=== PATIENT | male | born 1975 | race Caucasian/White ===

== ENCOUNTER → 2017-03-26 | Outpatient (CLI) | payer OTHER ==
--- NOTE | 2017-03-27 06:20 | PAP/PSG TECHNICIAN REPORT ---
[facility] Tool Room Attendant Polysomnogram Report Study name: None Report date: 03/27/2017 Study date: 03/26/2017 Referring Physician: Hiral Coreas PA-C Name: ADAN ORO Interpreting Physician: Brian Ortiz D.O. Date of : 1975 Tool Room Attendant: Hiren Gracia RPSGT. Sex: Male Age: 41 StudyType: PSG Weight: 177 lbs 38.5 cm Height: 41 years, Height 6' 0" Neck Circum: BMI: 24 Medications: VITAMIN D3, CLOMIPRAMINE HCL 75 MG, DULOXETINE 60 MG, REXULTI 2 MG Patient History PATIENT HAS HISTORY OF HYPERSOMNOLENCE, WITNESSED APNEA, INSOMNIA AND VIVID DREAMS. ALSO HAS HISTORY OF OCD AND DEPRESSION. HE IS HERE TODAY FOR AN EVALUATION OF LEONARD. ESS = 17 RM 8 Parameters Monitored NPSG: E1-M2, E2-M1, Fp1-M2, Fp2-M1, F3-M2, F4-M2, F4-M1, C3-M2, C4-M2, C4-M1, O1-M2, O2-M2, O2-M1, T3-M2, T4-M1, P3-M2, P4-M1, CHIN1, CHIN2, HR, EKG, Legs, PFLOW, SNOR, FLOW, CFLOW, Tidal Volume, THOR, ABDO, SpO2, PLTH, CPRESS, ETCO2 Wave, ETCO2, pH Sleep Architecture Sleep Stages Time at Lights Off 10:41:14 PM STAGES Time (min.) TST (%) Time at Lights On 5:40:14 AM Wake 200.5 -- Total Recording Time (TRT) 419.50 min. N1 33.5 15 Total Sleep Period (TSP) 357.5 min. N2 178.5 82 Total Sleep Time (TST) 218.5min. N3 6.5 3 Awake Time 201.0 min. REM 0.0 0 Wake after Sleep Onset 148.5 min. Sleep Efficiency (SE) 52 % Sleep Onset Latency (CANDELARIA) 52.0 min. Number of Stage 1 Shifts None Awakenings 42 Stage Changes 118 Number of REM periods N/A REM 0.0 0 REM Latency NONE min. NREM 218.5 100 Body Position Analysis Supine Right Left Side Prone Vertical Total Sleep Time (min.) 177.6 52.5 93.0 145.50 0.0 0.0 Total Sleep Time (%) 33% 24% 43% 67 0% N/A% Total Sleep Time REM (min.) 0.0 0.0 0.0 None 0.0 0.0 Total Sleep Time NREM (min.) 73.0 52.5 93.0 None 0.0 0.0 Intermittent Wake (min.) 104.6 44.3 51.6 None 0.0 0.0 Total Sleep Period (%) 35% None None None None None Arousals Myoclonus (PLM) * Events Count Index Events Count Index Spontaneous 48 13 Events Awake (PLMW) 151 45.2 Respiratory 6 1.9 Events Asleep w/ Arousal (PLMA) 9 2.5 PLM 7 2 Events Asleep w/o Arousal (PLMS) 186 51.1 Snoring 2 1 Total Asleep 195 53.5 Total 62 17 Total 346 50 Respiratory Analysis * CA OA MA CH H RERA Total Count 0 0 0 0 4 6 4 Index 0.0 0.0 0.0 0 1.1 2 2.7 Mean Duration 0.0 0.0 0.0 0.00 32.8 17.9 23.9 Longest Duration 0.0 0.0 0.0 0.00 0.0 23.6 42.2 Respiratory Event Summary Total Supine ~Supine Right Left Prone REM NREM Apneas Count 0 0 0 0 0 N/A N/A 0 Index 0.0 0 0 0.0 0.0 N/A N/A 0 Hypopneas (4% Desat) Count 4 4 0 0 0 N/A N/A 4 Index 1.1 3.3 0 0.0 0.0 N/A N/A 1.1 Apneas & All Hypopneas Count 4 4 0 0 0 N/A N/A 4 Index 1.1 3 0 0 0 N/A N/A 1.1 Respiratory Events (Senior Quality Control Inspector+All Hyp+RERA) Count 4 10 0 0 0 N/A N/A 4 Index 2.7 8 0 0.0 0.0 N/A N/A 2.7 Respiratory Related Arousal Count 6 10 0 0 0 N/A N/A 7 Index 1.9 6 0 0 0 N/A N/A 2 Snoring Analysis Supine Right Left Prone REM NREM Total Snore duration 2.0 min Snores count 11 19 16 N/A N/A 46 46 Snore mean duration 2.7 Sec Snores index 9 22 10 N/A N/A 12.6 12.6 TST with snoring (%) 0.9% Desaturation Event Summary: Minimum %SpO2 Event Count Mean/Min/Max Duration(sec.) Desaturation Index % Time In Bed > 90 6 41.8 / 19.5 / 57.2 0.9 99.8 86 - 90 0 N/A 0.0 0.2 81 - 85 0 N/A 0.0 0.0 76 - 80 0 N/A 0.0 0.0 71 - 75 0 N/A 0.0 0.0 66 - 70 0 N/A 0.0 0.0 61 - 65 0 N/A 0.0 0.0 56 - 60 0 N/A 0.0 0.0 51 - 55 0 N/A 0.0 0.0 < 50 0 N/A 0.0 0.0 Total REM NREM Awake <50% 0.0 min. 0.0 min. 0.0 min. 0.0 min. 51 - 60% 0.0 min. 0.0 min. 0.0 min. 0.0 min. 61 - 70% 0.0 min. 0.0 min. 0.0 min. 0.0 min. 71 - 80% 0.0 min. 0.0 min. 0.0 min. 0.0 min. 81 - 90% 1.0 min. 0.0 min. 0.7 min. 0.3 min. 91 - 100% 412.5 min. 0.0 min. 217.8 min. 194.7 min. Average 95 0 95 95 Minimum SpO2 88 N/A 88 89 Desaturation Event Index 0.9 0.0 1.1 0.6 # Desat. Events below 89% 1 N/A 1 N/A Time(%) with Saturation below 89% 0.1 0.0 0.1 0.0 Time(min.) with Saturation below 89% 0.2 0.0 0.2 0.0 Time (mins) REM (mins) NREM (mins) % of TST SpO2 Below 90% 3 N/A N3 0.2 SpO2 Below 88% 1 0 0 0 Heart Rate Analysis Min (bpm) Max (bpm) Average (bpm) Awake 66 110 79 NREM 66 107 76 REM N/A N/A N/A Overall 66 107 76 Supplemental O2 Values Minimum O2 level: None Value Start Time End Time Tool Room Attendant Comments Mr. Oro slept in the right, left and supine positions. No cardiac arrhythmia noted. Leg movements noted. No bruxism noted. Snoring was noted and scored as a 1 on a scale of 1 through 5. (0=no snoring, 5=snoring loud enough to be heard through a closed door or down the blunt way) Mr. Oro awoke to use the restroom 1 time during the night. Mr. Oro stated I did not sleep as well as I do when I am in my own bed. The final report will be interpreted and signed by a sleep physician. The completed physician report will then be placed in the patient medical record. Therapy (cm H2O) 0 TIB (min.) 419.0 TST (min.) 218.5 Sleep Onset (min.) 52.0 REM Onset From Sleep (min.) NONE Sleep Efficiency % 52 Wakefulness (%) 48 Wakefulness (min.) 201.0 NREM 1 (%) 15 NREM 1 (min.) 33.5 NREM 2 (%) 82 NREM 2 (min.) 178.5 NREM 3 (%) 3 NREM 3 (min.) 6.5 REM (%) 0 REM (min.) 0.0 # Arousals 62 Arousal Index 17 # Snore 46 Snore Index 12.6 AHI 1.1 AHI Supine 3 AHI Non-Supine 0 NREM AHI 1.1 REM AHI N/A RDI 2.7 # Obstructive Apnea 0 # Central Apnea 0 # Mixed Apnea 0 # Hypopneas 4 RERAs 6 Total Respiratory Events 10 Time Below SpO2 89% (min.) 0.2 Mean NREM SpO2 (%) 95 Mean REM SpO2 (%) N/A Mean Sleep SpO2 (%) 95 Min NREM SpO2 (%) 88 Min REM SpO2 (%) N/A Position Supine (min.) 177.6 Position Non-supine (min.) 145.5 LM Index Sleep 53.5 LM Index NREM 53.5 LM Index REM N/A Mean Heart Rate (bpm) 76 Min Heart Rate (bpm) 66
--- NOTE | 2017-03-28 07:55 | POLYSOMNOGRAPH REPORT ---
CLINICAL DATA: The patient is a 41-year-old male with a BMI of 24. He is referred by Dr. Amado James. His history is that of snoring, observed apnea, hypersomnolence, and vivid dreams. He has a history of depression and OCD. This was an in lab overnight sleep study. SLEEP ARCHITECTURE: The total sleep period was 357.5 minutes. Total sleep time was 218.5 minutes. The sleep efficiency was severely reduced to 52%. Sleep onset latency was prolonged to 52 minutes. Wake after sleep onset was prolonged to 148.5 minutes. Sleep consisted of stage N1 15%, stage N2 82%, stage N3 3%, REM sleep 0%. AROUSAL DATA: The patient had a total of 62 arousals including 48 spontaneous arousals, 6 respiratory arousals, 7 PLM arousals, and 2 snoring arousals. The arousal index was 17. PLM DATA: The patient had a total of 195 periodic limb movements of sleep for an index of 53.5. There were only 9 arousals for a PLM arousal index of 2.5. He also had 151 periodic limb movements while awake. EKG: The underlying cardiac rhythm was normal sinus. The cardiac rates ranged from 66-107 beats per minute. The average heart rate was 76 beats per minute. No arrhythmias were noted. RESPIRATORY DATA: The patient had a total of 4 respiratory events, all hypopneas. The hypopneas were scored according to the 4% desaturation rule. The apnea hypopnea index was only 1.1. In addition, he had 6 RERAs. The mean duration of the hypopneas was 32.8 seconds. The apnea hypopnea index of 1.1 is normal and would not suggest sleep apnea. OXIMETRY DATA: The average saturation for the night was 95%. The minimum saturation was 88% and this was very transient. There was a total of 0.2 minutes with saturations less than 89%. FISCAL TECHNICIAN COMMENTS: The patient slept in the right, left, and supine positions. No cardiac arrhythmias were noted. Leg movements noted. No bruxism noted. Snoring was noted and scored as a 1 on a scale of 1 through 5. IMPRESSIONS: 1. Primary snoring. 2. Periodic limb movement disorder. COMMENTS: The patient had no significant sleep apnea. His apnea hypopnea index was normal at 1.1. He had poor sleep however. The sleep efficiency was decreased. He had a markedly prolonged sleep onset. His sleep was not well consolidated. There was very little stage N3 sleep and no REM sleep and thus most of the night was stage N2. He does take medications which could suppress REM sleep including clomipramine and duloxetine. He had frequent limb movements during the night. The limb movements may be associated with medications such as clomipramine and duloxetine. There were relatively few arousals associated with these periodic limb movements. The patient does have a history of depression and OCD. It is unclear what role these problems may play in his symptoms of daytime somnolence. RECOMMENDATIONS: Follow up is deferred to Dr. James.
== END | disposition home or self-care (01) ==
LOC: C.NEUR 21:00
PROVIDERS: ATTEND Physician Assistant Medical
DX: G47.10 Hypersomnia, unspecified (principal)